=== PATIENT | female | born 1935 | race Caucasian/White ===

== ENCOUNTER 2018-06-15 00:13 | Emergency (ER) | payer MEDICARE, BC ==
[~2018-06-15] VITALS: Ht 162.6 cm; Wt 104.3 kg
[~2018-06-15 00:13] MED LIST: ALBU2.5V8 IH; ASPI-612 PO; ATOR10TA PO; CALC-431 PO; CEPH250C PO; CHOL10003 PO; DILT180C2 PO; DOCU100C28 PO; FERR325T14 PO; FLUT1DIS3 IH; GUAI12003 PO; INSU100I17 SQ; INSU100I27 SQ; LANS30CA66 PO; LISI-338 PO; LORA1TAB PO; METO-239 PO; NITR0.4T SL; NITR1PAT5 TD; OXYC1TAB15 PO; PARO10OR3 PO; PARO10TA57 PO; TRIA1TAB2 PO; WARF4TAB64 PO
[2018-06-15 00:58] LABS: BILIRUBIN,URINE NEGATIVE (NEG); CLARITY,URINE CLOUDY; COLOR,URINE RED; NITRITE,URINE NEGATIVE (NEG); PH,URINE 5.5; PROTEIN,URINE >=300 mg/dL (NEG-TRACE); UROBILINOGEN,URINE 0.2 mg/dL (0.2 mg/dL)
[2018-06-15 01:10] LABS: BACTERIA,URINE FEW /HPF (0-FEW); RBC,URINE TNTC /HPF (0-2); SQUAMOUS EPITHELIAL CELL,UR FEW /LPF; WBC,URINE 20-40 /HPF (0-4)
[2018-06-15] MEDS ORDERED: CEPH500C PO (01:21)
[2018-06-15] MEDS ORDERED: cefTRIAXone IM 1 GM VIAL IM ONE (01:30)
[2018-06-15 01:39] VITALS: BP 123/54
--- NOTE | 2018-06-15 01:40 | PHYS DOC ---
Past Medical History Past Medical History: Anxiety, Asthma, COPD, GERD, Hypertension, [place] Past Surgical History: Appendectomy, Cholecystectomy Alcohol Use: None Drug Use: None Adult General Chief Complaint Chief Complaint: PAIN ON URINATION [facility] HPI Patient is a 82 year olD female who presents with dysuria and urinary frequency having some Intermittent urinary incontinence she feels like she is just "spurting" No fever no back pain no vomiting she has had urinary tract infections in the past no abdominal pain Bladder scan did [id number] mL after urinating I SUSPECT component of bladder spasm Review of Systems Review of Systems Constitutional: Denies fever or chills [] Eyes: Denies change in visual acuity, redness, or eye pain [] Cardiovascular: No additional information not addressed in HPI [] GI: Denies abdominal pain, nausea, vomiting, bloody stools or diarrhea [] Neurologic: Denies headache, focal weakness or sensory changes [] Endocrine: Denies polyuria or polydipsia [] All other systems were reviewed and found to be within normal limits, except as documented in this note. Current Medications Current Medications Current Medications Medications (Trade) Dose Ordered Sig/Mari Start Time Stop Time Status Last Admin Dose Admin Ceftriaxone Sodium (Rocephin Im) 1 gm 1X ONCE 06/15/18 01:30 06/15/18 01:31 DC Allergies Allergies Allergies Coded Allergies Type Severity Reaction Last Updated Verified latex Allergy Severe BLISTERS 04/12/15 Yes Physical Exam Physical Exam Constitutional: Well developed, obese, no acute distress, non-toxic appearance. [] HENT: Normocephalic, atraumatic, bilateral external ears normal, oropharynx moist, no oral exudates, nose normal. [] Eyes: PERRLA, EOMI, conjunctiva normal, no discharge. [] Neck: Normal range of motion, no tenderness, supple, no stridor. [] Pulmonary: Normal respiratory effort no increased work of breathing no obvious chest wall trauma Abdomen: Bowel sounds normal, soft, no tenderness, no masses, no pulsatile masses. [] Skin: Warm, dry, no erythema, no rash. [] Back: No tenderness, no CVA tenderness. [] Extremities: No tenderness, no cyanosis, no clubbing, ROM intact, no edema. [] Neurologic: Alert and oriented X 3, normal motor function, normal sensory function, no focal deficits noted. [] Psychologic: Affect normal, judgement normal, mood normal. [] Current Patient Data Lab Values Laboratory Tests Test 06/15/18 00:50 Urine Collection Type Unknown Urine Color Red Urine Clarity Cloudy Urine pH 5.5 Urine Specific [place] 1.025 Urine Protein >=300 mg/dL (NEG-TRACE) Urine Glucose (UA) Negative mg/dL (NEG) Urine Ketones (Stick) Trace mg/dL (NEG) Urine Blood Large (NEG) Urine Nitrite Negative (NEG) Urine Bilirubin Negative (NEG) Urine Urobilinogen Dipstick 0.2 mg/dL (0.2 mg/dL) Urine Leukocyte Esterase Large (NEG) Urine RBC Tntc /HPF (0-2) Urine WBC 20-40 /HPF (0-4) Urine Squamous Epithelial Cells Few /LPF Urine Bacteria Few /HPF (0-FEW) EKG EKG [] Radiology/Procedures Radiology/Procedures [] Course & Med Decision Making Course & Med Decision Making Pertinent Labs and Imaging studies reviewed. (See chart for details) []Urinalysis shows UTI patient has classic symptoms of lower urinary tract symptoms. Does have some mild urinary retention but I think given the active UTI we should treat that first patient was advised to follow-up with her primary care doctor to ensure that her symptoms are resolving. She is well-appearing no fever no back pain vitals are reassuring ceftriaxone in the ER prescription for Keflex return precautions discussed she was understanding Dragon Disclaimer Dario Disclaimer This electronic medical record was generated, in whole or in part, using a voice recognition dictation system. Departure Departure Impression: Primary Impression: Urinary tract infection Disposition: HOME, SELF-CARE Condition: STABLE Patient Instructions: Urinary Tract Infection, [id number] Additional Instructions: SEE DR TALBOT NEXT WEEK TO ENSURE THE SYPMTOMS ARE BETTER Scripts Cephalexin (CEPHALEXIN) 500 Mg Capsule 1 CAP PO QID, #40 CAP Prov: JUWAN GONZALEZ MD 06/15/18 JUWAN GONZALEZ MD Jun 15, 2018 01:40
== END 2018-06-15 02:10 | disposition home or self-care (01) ==
LOC: ER 00:13
DX: N39.0 Urinary tract infection, site not specified (principal); F41.9 Anxiety disorder, unspecified; J44.9 Chronic obstructive pulmonary disease, unspecified; K21.9 Gastro-esophageal reflux disease without esophagitis; I10 Essential (primary) hypertension; I25.2 Old myocardial infarction; E66.9 Obesity, unspecified; Z68.39 Body mass index [BMI] 39.0-39.9, adult; Z90.49 Acquired absence of other specified parts of digestive tract; Z90.89 Acquired absence of other organs; Z91.040 Latex allergy status
CPT/HCPCS: 81001; 87086; 96372; 99284; J0696; 87186